=== PATIENT | female | born 1995 | race Caucasian/White ===

== ENCOUNTER 2016-12-27 13:20 | Emergency (ER) | payer OTHER ==
[2016-12-27 14:02] VITALS: BP 120/90
--- NOTE | 2016-12-27 14:40 | UC ---
Throat Pain/Nasal Ramiro HPI - HPI Summary HPI Summary: Sore throat for 1 week hurts to swallow not fever - History of Current Complaint Chief Complaint: UCRespiratory Stated Complaint: THROAT PAIN Time Seen by Provider: 12/27/16 14:01 Hx Obtained From: Patient Hx Last Menstrual Period: one month ago ?: No Onset/Duration: Gradual Onset, Lasting Weeks - 1, Still Present Severity: Moderate Pain Intensity: 6 Pain Scale Used: 0-10 Numeric Cough: None - Allergies/Home Medications Allergies/Adverse Reactions: Allergies Allergy/AdvReac Type Severity Reaction Status Date / Time No Known Allergies Allergy Verified 12/27/16 14:03 Home Medications: Home Medications Levothyroxine TAB* [Synthroid 25 MCG TAB*] 12/27/16 [History] Sertraline* [Zoloft*] 12/27/16 [History] PMH/Surg Hx/FS Hx/Imm Hx Previously Healthy: No Endocrine History Of: Reports: Thyroid Disease Denies: Diabetes Cardiovascular History Of: Denies: Cardiac Disorders, Hypertension Respiratory History Of: Denies: COPD, Asthma GI/ History Of: Denies: Ulcer Psychological History Of: Reports: Depression - on lexapro before Denies: Anxiety, Bipolar Disorder - Surgical History Surgical History: None - Family History Known Family History: Positive: Other - mother has frequent OMs - Social History Occupation: Unemployed Lives: With Family Alcohol Use: None Substance Use Type: Prescribed Smoking Status (MU): Never Smoked Tobacco Type: Cigarettes Amount Used/How Often: 2-3 cigarettes a day Have You Smoked in the Last Year: No - Immunization History Most Recent Tetanus Shot: 2006 Review of Systems Constitutional: Fatigue Skin: Negative Eyes: Negative ENT: Sore Throat Respiratory: Negative Cardiovascular: Negative Gastrointestinal: Negative Genitourinary: Negative Motor: Negative Neurovascular: Negative Musculoskeletal: Negative Neurological: Negative Psychological: Negative All Other Systems Reviewed And Are Negative: Yes Physical Exam Triage Information Reviewed: Yes Appearance: Well-Appearing, No Pain Distress, Well-Nourished Vital Signs: Initial Vital Signs Temp 98.6 F 12/27/16 13:59 Pulse 87 12/27/16 13:59 Resp 18 12/27/16 13:59 BP 120/90 12/27/16 13:59 Pulse Ox 97 12/27/16 13:59 Eye Exam: Normal Eyes: Positive: Conjunctiva Clear ENT Exam: Normal ENT: Positive: Normal ENT inspection, Hearing grossly normal, TMs normal, Muffled/hoarse voice, Other: - uvula slightly large---no airway comprimise. Negative: Nasal congestion, Nasal drainage, Tonsillar swelling, Tonsillar exudate, Trismus Dental Exam: Normal Neck exam: Normal Neck: Positive: Supple, Nontender, No Lymphadenopathy Respiratory Exam: Normal Respiratory: Positive: Chest non-tender, Lungs clear, Normal breath sounds, No respiratory distress, No accessory muscle use Cardiovascular Exam: Normal Cardiovascular: Positive: RRR, No Murmur, Pulses Normal, Brisk Capillary Refill Musculoskeletal Exam: Normal Musculoskeletal: Positive: Strength Intact, ROM Intact, No Edema Neurological Exam: Normal Neurological: Positive: Alert, Muscle Tone Normal Psychological Exam: Normal Skin Exam: Normal Diagnostics - Laboratory Diagnostic Studies Completed/Ordered: RST (-) Throat Pain/Nasal Course/Dx - Course Assessment/Plan: Augmentin increase fluids Ibuprofen follow with pcp - Differential Dx/Diagnosis Differential Diagnosis/HQI/PQRI: Influenza, Peritonsillar Abscess, Pharyngitis, Sinusitis, URI Provider Diagnoses: uvulitis Discharge - Discharge Plan Condition: Stable Disposition: HOME Prescriptions: Amoxicillin/Clavulanate TAB* [Augmentin TAB 875*] 875 mg PO BID #20 tab Patient Education Materials: Uvulitis (ED), DASH Eating Plan (ED), Hypertension (ED) Referrals: Esteban Pelayo, TOUR COUNSELOR [Primary Care Provider] - 1 Week
== END 2016-12-27 14:53 | disposition home or self-care (01) ==
LOC: UCEAST 13:20
DX: K12.2 Cellulitis and abscess of mouth (principal); E07.9 Disorder of thyroid, unspecified
CPT/HCPCS: 87651; 99212; G0463

== ENCOUNTER 2019-06-01 17:41 | Emergency (ER) | payer OTHER ==
[2019-06-01] MEDS ORDERED: Ketorolac INJ* 30 MG/ML 1 ML VIAL IM ONE (19:52)
[2019-06-01] MEDS ORDERED: Cyclobenzaprine TAB* 10 MG PO ONE ×2 (19:52→21:16)
--- NOTE | 2019-06-01 21:11 | ED ---
Back Pain - HPI Summary HPI Summary: 24 year old female presents with back pain for the past couple days. She states she has a history of scoliosis. Has ever had this intense pain before. She denies any loss of bowel or bladder. No saddle anesthesia. Denies any fevers. No history of IV drug use. denies any urinary symptoms. No pain into legs. No numbness or tingling. Has history of thyroid issues. 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 - History of Current Complaint Chief Complaint: EDBackInjuryPain Stated Complaint: BACK PAIN PER PT Time Seen by Provider: 06/01/19 19:25 Hx Last Menstrual Period: 06/2017 Pain Intensity: 10 - Allergies/Home Medications Allergies/Adverse Reactions: Allergies Allergy/AdvReac Type Severity Reaction Status Date / Time No Known Allergies Allergy Verified 12/27/16 14:03 PMH/Surg Hx/FS Hx/Imm Hx Endocrine/Hematology History: Reports: Hx Thyroid Disease Denies: Hx Diabetes Cardiovascular History: Denies: Hx Hypertension Respiratory History: Denies: Hx Asthma, Hx Chronic Obstructive Pulmonary Disease (COPD) GI History: Denies: Hx Ulcer Psychiatric History: Reports: Hx Depression - on lexapro before , Hx [facility] Denies: Hx Anxiety, Hx Attention Deficit Hyperactivity Disorder, Hx Bipolar Disorder Infectious Disease History: No Infectious Disease History: Denies: Hx Hepatitis, Hx Human Immunodeficiency Virus (HIV), Traveled Outside the [place] in Last 30 Days - Family History Known Family History: Positive: Other - mother has frequent OMs depression - Social History Alcohol Use: None Substance Use Type: Reports: Prescribed Smoking Status (MU): Never Smoked Tobacco Type: Cigarettes Amount Used/How Often: 2-3 cigarettes a day Have You Smoked in the Last Year: No Review of Systems Negative: Fever Negative: Chest Pain Negative: Shortness Of Breath Positive: Myalgia - back pain All Other Systems Reviewed And Are Negative: Yes Physical Exam Triage Information Reviewed: Yes Vital Signs On Initial Exam: Initial Vitals Temp Pulse Resp BP Pulse Ox 97.8 F 80 18 136/99 98 06/01/19 17:44 06/01/19 17:44 06/01/19 17:44 06/01/19 17:44 06/01/19 17:44 Vital Signs Reviewed: Yes Appearance: Positive: Well-Appearing Skin: Positive: Warm, Dry Head/Face: Positive: Normal Head/Face Inspection Eyes: Positive: Normal, Conjunctiva Clear ENT: Positive: Pharynx normal Respiratory/Lung Sounds: Positive: Clear to Auscultation, Breath Sounds Present Cardiovascular: Positive: Normal, RRR Abdomen Description: Positive: Nontender, Soft Bowel Sounds: Positive: Present Musculoskeletal: Positive: Limited @ - back due to pain, Other - tenderness thoracic back, nontender lower back, neg SLR, sensation grossly intact, good pulses Neurological: Positive: Normal Psychiatric: Positive: Normal Diagnostics - Vital Signs Vital Signs Temp Pulse Resp BP Pulse Ox 06/01/19 17:44 97.8 F 80 18 136/99 98 - Laboratory Lab Statement: Any lab studies that have been ordered have been reviewed, and results considered in the medical decision making process. - CT thoracic CT Interpretation Completed By: Radiologist Summary of CT Findings: IMPRESSION: 1. No acute findings. 2. Levoscoliosis of thoracic spine. 3. Mild degenerative narrowing of the right aspect of the T8/T9 disc space with osteophyte formation. Back Pain Course/Dx - Course Course Of Treatment: 24 year old female presents with back pain for the past couple days. She states she has a history of scoliosis. Has ever had this intense pain before. She denies any loss of bowel or bladder. No saddle anesthesia. Denies any fevers. No history of IV drug use. denies any urinary symptoms. No pain into legs. No numbness or tingling. Has history of thyroid issues. 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 On exam has tenderness in thoracic back region. Neurovascular intact. CT shows degenerative changes. Gave pain medication feeling better. Will prescribe a short course of steroids and muscle relaxants. Told to follow with primary. Patient understands agrees plan. - Diagnoses Differential Diagnosis/HQI/PQRI: Positive: Herniated Disc, Strain, Sprain Provider Diagnoses: Back pain Discharge ED - Sign-Out/Discharge Documenting (check all that apply): Patient Departure Patient Received Moderate/Deep Sedation with Procedure: No - Discharge Plan Condition: Good Disposition: HOME Prescriptions: Cyclobenzaprine TAB* [Flexeril 10 MG TAB*] 10 mg PO TID PRN #21 tab PRN Reason: Pain - Moderate methylPREDNISolone [Medrol Dosepak 4 MG*] 4 mg PO .SEE SUSHIL INSTRUCTION #1 packet Patient Education Materials: Back Pain (ED) Forms: *Work Release Referrals: Bird Fair DO [Primary Care Provider] - Additional Instructions: Follow directions on package for Medrol pack Take muscle relaxers three times a day Use ibuprofen or Tylenol for pain every 6 hours ice/heat area, move as much as possible Follow up with primary within 5 days Return to ED if develop any new or worsening symptoms - Billing Disposition and Condition Condition: GOOD Disposition: Home
[2019-06-01] MEDS ORDERED: Dexamethasone TAB* 4 MG PO ONE (21:16)
[2019-06-01 21:31] VITALS: BP 134/98
== END 2019-06-01 21:30 | disposition home or self-care (01) ==
LOC: ED 17:41
DX: M54.9 Dorsalgia, unspecified (principal); E07.9 Disorder of thyroid, unspecified; F32.9 Major depressive disorder, single episode, unspecified; Z87.891 Personal history of nicotine dependence
CPT/HCPCS: 72128; 96372; 99283; A9270-GY; J1885; J8540